=== PATIENT | female | born 1965 | race Caucasian/White ===

== ENCOUNTER 2018-04-27 10:21 | Outpatient (CLI) | payer OTHER, SELFPAY ==
[2018-04-27 10:45] LABS: Abs Immature Grans 0.01 k/cumm (0.0-0.09); Absolute Basophil Count 0.01 k/cumm (0.0-0.2); Absolute Eosinophil Count 0.07 k/cumm (0.0-0.7); Absolute Lymphocyte Count 1.43 k/cumm (1.2-3.4); Absolute Monocyte Count 0.38 k/cumm (0.11-0.7); Absolute Neutrophil Count 1.96 k/cumm (1.2-6.7); Basophils % 0.3; Eosinophils % 1.8; HCT 38.4 % (36.0-46.0); HGB 13.1 g/dL (12.0-15.5); Immature Grans % 0.3; Mean Corp. HGB Concentration 34.1 g/dL (32.0-36.0); Mean Corpuscular Hemoglobin 33.2 pg (27.0-33.0); Mean Corpuscular Volume 97.2 fL (80-95); Mean Platelet Volume 10.3 fL (8.0-11.0); Monocytes % 9.8; Neutrophils % 50.8; Platelet Count 164 x1000/uL (130-400); RBC 3.95 m/cumm (4.00-5.20); White Blood Cell Count 3.86 k/cumm (4.4-10.8)
[2018-04-27 11:57] LABS: ALT 18 U/L (12-78); AST 32 U/L (15-37); Albumin 3.7 g/dL (3.4-5.0); Alkaline Phosphatase 68 U/L (46-116); Anion Gap 8.1 mmol/L (3-11); BUN 12 mg/dL (7-18); Bilirubin, Total 1.1 mg/dL (0.2-1.0); CO2 25.9 mmol/L (21.0-32.0); CREATININE 0.95 mg/dL (0.55-1.02); Calcium 8.6 mg/dL (8.5-10.1); Chloride 105 mmol/L (98-107); Glucose 104 mg/dL (70-100); LDH 165 U/L (81-234); Potassium 4.1 mmol/L (3.5-5.1); Sodium 139 mmol/L (136-145); Total Protein 7.4 g/dL (6.4-8.2)
[2018-04-27 12:06] LABS: FREE T4 1.04 ng/dL (0.76-1.46); TSH 2.85 uIU/mL (0.358-3.74)
[2018-04-30 11:01] LABS: Thyroglobulin Antibody 57 U/mL (<61); Thyroperoxidase Antibody >1300 U/mL (<61)
[2018-04-30 11:47] LABS: C4 Complement 22 mg/dL (13-39)
[2018-04-30 13:08] LABS: C3 Complement 122 mg/dL (81-157)
[2018-04-30 13:22] LABS: Albumin 57.7 % (55.8-66.1); Total Protein 7.2 g/dl (6.3-8.2)
== END 2018-04-27 10:22 ==
PROVIDERS: PCP Nurse Practitioner; Visit Provider Internal Medicine
DX: M35.01 Sjogren syndrome with keratoconjunctivitis (principal); E06.3 Autoimmune thyroiditis
CPT/HCPCS: 36415; 80053; 83615; 84165; 84439; 84443; 84481; 85025; 86160; 86376; 86800

== ENCOUNTER 2019-03-20 12:55 | Outpatient (REF) | payer OTHER, SELFPAY ==
--- NOTE | 2019-03-20 17:00 | PAPFT_PTH ---
PATIENT: Joseph Ellington LOC: DAILY U#:[id number] AGE/SX: 53/F ROOM: RE03/20/[address]: Camille Crawford APRN : 1965 BED: DIS: 03/20/2019 SPEC #: [id number] RECD: 03/21/19 13:03 STATUS: DONAVAN SMITH #: [id number] ESTEVAN: 03/20/19 17:[address]: Camille Crawford DEPT: [facility] Cytology RECD BY: Chetna Raines Tissues: 1 - CX/ENDOCX FOR PAP SMEARS Procedures: PAP THIN PREP/UVM Screening HPV DNA PROBE Comments: [id number]
== END 2019-03-20 13:15 ==
LOC: LBN 12:55
PROVIDERS: PCP Nurse Practitioner; Visit Provider Nurse Practitioner
DX: Z12.4 Encounter for screening for malignant neoplasm of cervix (principal); Z11.51 Encounter for screening for human papillomavirus (HPV)
CPT/HCPCS: 88142; 87624

== ENCOUNTER 2019-04-11 17:30 | Outpatient (REF) | payer OTHER, SELFPAY ==
[2019-04-15 14:54] LABS: Chlamydia Result Negative; GC Result Negative; Specimen Description CERVIX
== END 2019-04-11 17:50 ==
LOC: LBN 17:30
PROVIDERS: PCP Nurse Practitioner; Visit Provider Nurse Practitioner Women's Health
DX: Z11.3 Encounter for screening for infections with a predominantly sexual mode of transmission (principal)
CPT/HCPCS: 87491; 87591

== ENCOUNTER 2019-04-12 08:13 | Outpatient (CLI) | payer OTHER, SELFPAY ==
[2019-04-12 08:41] LABS: Absolute Basophil Count 0.01 k/cumm (0.0-0.2); Absolute Eosinophil Count 0.04 k/cumm (0.0-0.7); Absolute Monocyte Count 0.33 k/cumm (0.11-0.7); Absolute Neutrophil Count 1.48 k/cumm (1.2-6.7); Basophils % 0.3; Eosinophils % 1.3; HCT 40.4 % (36.0-46.0); HGB 13.5 g/dL (12.0-15.5); Lymphocytes % 39.2; Mean Corp. HGB Concentration 33.4 g/dL (32.0-36.0); Mean Corpuscular Hemoglobin 33.1 pg (27.0-33.0); Mean Platelet Volume 9.9 fL (8.0-11.0); Monocytes % 10.8; Neutrophils % 48.4; Platelet Count 210 x1000/uL (130-400); RBC 4.08 m/cumm (4.00-5.20); RBC Distribution Width 12.5 % (11.7-14.6); White Blood Cell Count 3.06 k/cumm (4.4-10.8)
[2019-04-12 09:24] LABS: ALT 21 U/L (12-78); AST 27 U/L (15-37); Albumin 3.9 g/dL (3.4-5.0); Alkaline Phosphatase 58 U/L (46-116); Anion Gap 11.2 mmol/L (3-11); BUN 13 mg/dL (7-18); Bilirubin, Total 1.1 mg/dL (0.2-1.0); CO2 25.8 mmol/L (21.0-32.0); CREATININE 1.02 mg/dL (0.55-1.02); Calcium 9.1 mg/dL (8.5-10.1); Calculated LDL 103 mg/dL; Chloride 104 mmol/L (98-107); Cholesterol 182 mg/dL (50-200); Estimated GFR 56.91 (mL/min/1.73m2); Glucose 83 mg/dL (70-100); HDL Cholesterol 63 mg/dL (40-60); Potassium 4.1 mmol/L (3.5-5.1); Sodium 141 mmol/L (136-145); Total Protein 7.5 g/dL (6.4-8.2); Triglyceride 83 mg/dL (30-150)
[2019-04-12 13:58] LABS: FREE T4 1.24 ng/dL (0.76-1.46)
[2019-04-15 10:14] LABS: C3 Complement 114 mg/dL (81-157)
[2019-04-15 10:16] LABS: C4 Complement 21 mg/dL (13-39)
[2019-04-15 12:22] LABS: Albumin 59.1 % (55.8-66.1); Total Protein 7.2 g/dl (6.3-8.2)
== END 2019-04-12 08:33 ==
PROVIDERS: Naturopath; PCP Nurse Practitioner; Visit Provider Internal Medicine
DX: Z00.00 Encounter for general adult medical examination without abnormal findings (principal); Z13.220 Encounter for screening for lipoid disorders; E03.9 Hypothyroidism, unspecified; M35.01 Sjogren syndrome with keratoconjunctivitis
CPT/HCPCS: 36415; 80053; 80061; 83721; 84165; 84439; 84443; 85025; 86160

== ENCOUNTER 2019-06-13 09:29 | Outpatient (REF) | payer OTHER, SELFPAY ==
--- NOTE | 2019-06-13 08:55 | CER_PTH ---
PATIENT: Joseph Ellington LOC: DAILY U#:[id number] AGE/SX: 53/F ROOM: RE06/13/[address]: Negrita Molina MD : 1965 BED: DIS: 06/13/2019 SPEC #: [id number] RECD: 06/13/19 12:46 STATUS: DONAVAN REUna #: [id number] ESTEVAN: 06/13/19 08:[address]: Negrita Molina DEPT: Surgical Specimen RECD BY: Chetna Raines ENTERED: 06/13/19 12:47 SP TYPE: CER OT DR: Camille Crawford APRN Tissues: 1 - CERVICAL BIOPSY 2 - CERVICAL BIOPSY 3 - ENDOCERVICAL BX/CURRETTE Procedures: GROSS AND MICRO LEVEL 4 Comments: [id number]
== END 2019-06-13 09:49 ==
LOC: LBN 09:29
PROVIDERS: PCP Nurse Practitioner; Visit Provider Obstetrics & Gynecology
DX: N88.8 Other specified noninflammatory disorders of cervix uteri (principal); R87.619 Unspecified abnormal cytological findings in specimens from cervix uteri; R87.810 Cervical high risk human papillomavirus (HPV) DNA test positive
CPT/HCPCS: 88305

== ENCOUNTER 2019-10-06 07:55 | Outpatient (REF) | payer OTHER, SELFPAY ==
[2019-10-06 08:17] LABS: Absolute Basophil Count 0.02 k/cumm (0.0-0.2); Absolute Eosinophil Count 0.06 k/cumm (0.0-0.7); Absolute Lymphocyte Count 1.22 k/cumm (1.2-3.4); Absolute Monocyte Count 0.32 k/cumm (0.11-0.7); Absolute Neutrophil Count 2.38 k/cumm (1.2-6.7); Basophils % 0.5; Eosinophils % 1.5; HCT 38.6 % (36.0-46.0); HGB 12.9 g/dL (12.0-15.5); Lymphocytes % 30.5; Mean Corp. HGB Concentration 33.4 g/dL (32.0-36.0); Mean Corpuscular Hemoglobin 33.2 pg (27.0-33.0); Mean Corpuscular Volume 99.2 fL (80-95); Mean Platelet Volume 10.2 fL (8.0-11.0); Neutrophils % 59.5; Platelet Count 171 x1000/uL (130-400); RBC 3.89 m/cumm (4.00-5.20); RBC Distribution Width 11.8 % (11.7-14.6)
[2019-10-06 08:39] LABS: ALT 15 U/L (14-59); AST 28 U/L (15-37); Albumin 3.6 g/dL (3.4-5.0); Alkaline Phosphatase 50 U/L (46-116); Anion Gap 6.8 mmol/L (3-11); BUN 15 mg/dL (7-18); Bilirubin, Total 1.2 mg/dL (0.2-1.0); CO2 29.2 mmol/L (21.0-32.0); Calcium 8.9 mg/dL (8.5-10.1); Chloride 105 mmol/L (98-107); FREE T4 0.85 ng/dL (0.76-1.46); Glucose 80 mg/dL (74-106); Potassium 3.9 mmol/L (3.5-5.1); Sodium 141 mmol/L (136-145); Total Protein 6.6 g/dL (6.4-8.2)
[2019-10-06 11:33] LABS: Hemoglobin A1C 5.6 % (3.8-5.6)
[2019-10-10 11:00] LABS: Insulin <3.0 uIU/mL (<29.0)
== END 2019-10-06 08:15 ==
LOC: LBN 07:55
PROVIDERS: PCP Nurse Practitioner; Visit Provider Naturopath
DX: Z00.00 Encounter for general adult medical examination without abnormal findings (principal); M25.00 Hemarthrosis, unspecified joint; G43.809 Other migraine, not intractable, without status migrainosus; E06.3 Autoimmune thyroiditis; Z13.1 Encounter for screening for diabetes mellitus
CPT/HCPCS: 36415; 80053; 83036; 83525; 84439; 84443; 85025

== ENCOUNTER 2019-12-05 08:42 | Outpatient (CLI) | payer OTHER, SELFPAY ==
[2019-12-07 00:01] LABS: Arsenic (Blood) 1 ng/mL (0-12)
== END 2019-12-05 09:02 ==
PROVIDERS: PCP Nurse Practitioner; Visit Provider Naturopath
DX: E06.3 Autoimmune thyroiditis (principal); G43.809 Other migraine, not intractable, without status migrainosus; M15.1 Heberden's nodes (with arthropathy); Z77.010 Contact with and (suspected) exposure to arsenic
CPT/HCPCS: 36415; 82175

== ENCOUNTER 2019-12-09 12:39 | Outpatient (REF) | payer OTHER, SELFPAY ==
[2019-12-10 21:03] LABS: Total Arsenic <15 mcg/24 h (<18); Urine Volume 2210 mL
== END 2019-12-09 12:59 ==
LOC: LBN 12:39
PROVIDERS: PCP Nurse Practitioner; Visit Provider Naturopath
DX: Z77.010 Contact with and (suspected) exposure to arsenic (principal)
CPT/HCPCS: 82175; 81050

== ENCOUNTER 2019-12-12 13:51 | Outpatient (CLI) | payer OTHER, SELFPAY ==
[2019-12-24 14:39] LABS: Uranium None Detected mcg/L
== END 2019-12-12 14:11 ==
PROVIDERS: PCP Nurse Practitioner; Visit Provider Naturopath
DX: Z77.012 Contact with and (suspected) exposure to uranium (principal)
CPT/HCPCS: 83018

== ENCOUNTER 2019-12-30 11:39 | Outpatient (CLI) | payer OTHER, SELFPAY ==
[2019-12-30 12:50] LABS: ALT 19 U/L (14-59); AST 28 U/L (15-37); Albumin 3.9 g/dL (3.4-5.0); Alkaline Phosphatase 69 U/L (46-116); Anion Gap 7.1 mmol/L (3-11); BUN 18 mg/dL (7-18); Bilirubin, Total 1.2 mg/dL (0.2-1.0); CO2 28.9 mmol/L (21.0-32.0); CREATININE 1.04 mg/dL (0.55-1.02); Calcium 8.9 mg/dL (8.5-10.1); Chloride 105 mmol/L (98-107); Estimated GFR 55.43 (mL/min/1.73m2); Glucose 80 mg/dL (74-106); Potassium 4.4 mmol/L (3.5-5.1); Sodium 141 mmol/L (136-145); TSH 2.35 uIU/mL (0.36-3.74); Total Protein 7.4 g/dL (6.4-8.2)
[2019-12-31 23:43] LABS: 25-Hydroxy D Total 39 ng/mL; 25-Hydroxy D2 <4.0 ng/mL; 25-Hydroxy D3 39 ng/mL
== END 2019-12-30 11:59 ==
PROVIDERS: PCP Nurse Practitioner; Visit Provider Naturopath
DX: E55.9 Vitamin D deficiency, unspecified (principal); E06.9 Thyroiditis, unspecified; G43.809 Other migraine, not intractable, without status migrainosus; M15.1 Heberden's nodes (with arthropathy); R11.0 Nausea
CPT/HCPCS: 36415; 80053; 82306; 84436; 84443

== ENCOUNTER 2020-02-03 11:09 | Outpatient (CLI) | payer OTHER, SELFPAY ==
[2020-02-03 11:31] LABS: Bacteria Negative HPF (Negative); Bilirubin Negative (Negative); Blood Negative (Negative); C & S Indicated? No; Casts Negative LPF (Negative); Clarity Clear (Clear); Crystals Negative HPF (Negative); Epithelial Cells Rare HPF (Negative); Glucose Negative (Negative); Ketones Negative (Negative); Leukocyte Esterase Negative (Negative); Mucus Negative (Negative); Nitrite Negative (Negative); Specific Gravity 1.025 (1.005-1.025); Urobilinogen 0.2 EU/dL (Up TO 0.2); WBC Negative HPF (0-5); pH 6.5 (5-8)
== END 2020-02-03 11:29 ==
PROVIDERS: PCP Nurse Practitioner; Visit Provider Naturopath
DX: N23 Unspecified renal colic (principal); R35.0 Frequency of micturition
CPT/HCPCS: 81003; 81015

== ENCOUNTER 2020-02-27 10:36 | Outpatient (CLI) | payer OTHER, SELFPAY ==
--- NOTE | 2020-02-27 10:21 | DI.RAD_ITS ---
EXAM: XR KNEE RT 4V AP,LAT,MEGAN,PAT CLINICAL HISTORY: R knee pain TECHNIQUE: COMPARISON: No exams were available for comparison FINDINGS: Four views were obtained. There is moderate narrowing the medial tibiofemoral cartilaginous joint sp stephanie. The lateral tibiofemoral and patellofemoral cartilaginous joint spaces appear well maintained. No gross joint effusion by plain film criteria. Minimal marginal osteophyte formation noted at multiple sites. No other significant bony abnormality seen except for perhaps slight sclerosis medial femoral condyle. IMPRESSION: Mqon-pe-nddrvicl DJD medial tibiofemoral joint.
== END 2020-02-27 10:56 ==
PROVIDERS: PCP Nurse Practitioner; Referring Provider Nurse Practitioner; Visit Provider Physician Assistant
DX: M25.561 Pain in right knee (principal); M17.11 Unilateral primary osteoarthritis, right knee
CPT/HCPCS: 73564

== ENCOUNTER 2020-03-03 02:46 | Outpatient (CLI) | payer OTHER, SELFPAY ==
--- NOTE | 2020-03-03 14:45 | DI.MRI_ITS ---
EXAM: MR LOWER JOINT RT WO CLINICAL HISTORY: PAIN, INTERNAL DERANGEMENT OF RT KNEE, M23.91. TECHNIQUE: Multiplanar multisequence MRI was performed. COMPARISON: CR XR KNEE RT 4V AP,LAT,MEGAN,PAT from 02/27/2020 FINDINGS: BONES: There is no fracture or contusion pattern. JOINTS: There is marked thinning of the articular cartilage overlying the medial femoral condyle and the medial tibial plateau. Mild subchondral edema is seen in the femoral condyle and the tibial plat eau. No effusion is present. TENDONS: Extensor mechanism: Unremarkable. Medial retinaculum: Unremarkable. Lateral retinaculum: Unremarkable. Popliteus: Unremarkable. MUSCLES: Unremarkable. MENISCI: There is abnormal signal seen in the body and posterior horn of the medial meniscus consiste nt with a tear. The lateral meniscus is unremarkable. SOFT TISSUES: There is a popliteal cyst. It measures 3 cm transverse by 2.7 cm AP by 7.3 cm long. LIGAMENTS: Anterior Cruciate: Unremarkable. Posterior Cruciate: Unremarkable. Medial Collateral:Unremarkable. Lateral Collateral: Unremarkable. OTHER: IMPRESSION: 1. Tear of the body and posterior horn of the medial meniscus. 2. Degenerative changes seen in the medial femoral tibial joint. 3. Popliteal cyst. DATA REPOSITORY:
== END 2020-03-03 03:06 ==
PROVIDERS: PCP Nurse Practitioner; Visit Provider Student in an Organized Health Care Education/Training Program
DX: M25.561 Pain in right knee (principal); M23.91 Unspecified internal derangement of right knee; S83.241A Other tear of medial meniscus, current injury, right knee, initial encounter; M71.21 Synovial cyst of popliteal space [Baker], right knee; R60.0 Localized edema; M17.11 Unilateral primary osteoarthritis, right knee
CPT/HCPCS: 73721

== ENCOUNTER 2020-06-16 11:46 | Outpatient (REF) | payer OTHER, SELFPAY ==
--- NOTE | 2020-06-16 10:30 | PAPFT_PTH ---
PATIENT: Joseph Ellington LOC: DAILY U#:[id number] AGE/SX: 54/F ROOM: RE06/16/[address]: Zulay Sweeney NP : 1965 BED: DIS: 06/16/2020 SPEC #: [id number] RECD: 06/16/20 18:21 STATUS: DONAVAN REUna #: [id number] ESTEVAN: 06/16/20 10:[address]: Zulay Sweeney NP DEPT: [facility] Cytology RECD BY: Chetna Raines ENTERED: 06/16/20 18:21 SP TYPE: PAPFT OT DR: Camille Crawford APRN Tissues: 1 - CX/ENDOCX FOR PAP SMEARS Procedures: PAP THIN PREP/UVM Screening HPV DNA PROBE Comments: [id number]
== END 2020-06-16 12:06 ==
LOC: LBN 11:46
PROVIDERS: PCP Nurse Practitioner; Visit Provider Nurse Practitioner Women's Health
DX: R87.810 Cervical high risk human papillomavirus (HPV) DNA test positive (principal); Z12.4 Encounter for screening for malignant neoplasm of cervix
CPT/HCPCS: 88142; 87624

== ENCOUNTER 2020-08-27 11:50 | Outpatient (CLI) | payer OTHER, SELFPAY ==
[2020-08-27 12:50] LABS: Abs Immature Grans 0.01 10^3/uL (0.0-0.06); Absolute Basophil Count 0.02 10^3/uL (0.0-0.2); Absolute Eosinophil Count 0.03 10^3/uL (0.0-0.7); Absolute Lymphocyte Count 1.29 10^3/uL (1.2-3.4); Absolute Monocyte Count 0.29 10^3/uL (0.1-0.8); Absolute Neutrophil Count 1.44 10^3/uL (1.2-6.7); Basophils % 0.6; HCT 38.2 % (36.0-46.0); HGB 12.9 g/dL (11.2-15.7); Immature Grans % 0.3; Lymphocytes % 41.9; MCH 32.7 pg (27.0-33.0); MCHC 33.8 % (32.0-36.0); MPV 10.1 fL (8.0-11.0); Monocytes % 9.4; Neutrophils % 46.8; Nucleated RBC 0 %; Platelet Count 192 10^3/uL (130-400); RBC 3.94 10^6/uL (3.93-5.22); RDW 11.7 % (11.7-14.6); RDW-SD 41.8 fL; WBC 3.08 10^3/uL (4.4-10.8)
[2020-08-27 13:38] LABS: ALT 21 U/L (14-59); AST 33 U/L (15-37); Albumin 4.1 g/dL (3.4-5.0); Alkaline Phosphatase 66 U/L (46-116); Anion Gap 6.2 mmol/L (3-11); BUN 14 mg/dL (7-18); Bilirubin, Total 1.4 mg/dL (0.2-1.0); CO2 27.8 mmol/L (21.0-32.0); CREATININE 0.98 mg/dL (0.55-1.02); Chloride 105 mmol/L (98-107); Estimated GFR 59.14 (mL/min/1.73m2); FREE T4 1.05 ng/dL (0.76-1.46); Glucose 88 mg/dL (74-106); Potassium 3.9 mmol/L (3.5-5.1); Sodium 139 mmol/L (136-145); TSH 4.69 uIU/mL (0.36-3.74); Total Protein 7.7 g/dL (6.4-8.2)
[2020-08-27 22:19] LABS: Thyroperoxidase Antibody >1300 U/mL (<=60)
[2020-08-28 21:50] LABS: 25-Hydroxy D Total 46 ng/mL; 25-Hydroxy D2 <4.0 ng/mL; 25-Hydroxy D3 46 ng/mL
[2020-09-01 12:54] LABS: RNP Ab, IgG 3.1 Units (<20.0); SS-A Antibody 107.9 Units (<20.0); SS-B (La) Ab, IgG 26.2 Units (<20.0); Sm (Smith) Ab, IgG 2.8 Units (<20.0)
== END 2020-08-27 12:10 ==
PROVIDERS: PCP Nurse Practitioner; Visit Provider Naturopath
DX: E06.3 Autoimmune thyroiditis (principal); K63.9 Disease of intestine, unspecified; R06.09 Other forms of dyspnea; M35.00 Sjogren syndrome, unspecified; M54.5 Low back pain; M25.551 Pain in right hip; N94.3 Premenstrual tension syndrome; T57.0X Toxic effect of arsenic and its compounds; G43.809 Other migraine, not intractable, without status migrainosus; M15.1 Heberden's nodes (with arthropathy); E55.9 Vitamin D deficiency, unspecified; R94.4 Abnormal results of kidney function studies; R10.9 Unspecified abdominal pain
CPT/HCPCS: 36415; 80053; 82306; 84439; 84443; 85025; 86235; 86376

== ENCOUNTER 2020-09-06 07:55 | Outpatient (REF) | payer OTHER, SELFPAY ==
[2020-09-06 08:59] LABS: Total Volume 2325 ml
[2020-09-06 09:13] LABS: CREATININE 1.04 mg/dL (0.55-1.02)
[2020-09-06 09:15] LABS: Creatinine,Urine 65.84 mg/dL
== END 2020-09-06 08:15 ==
LOC: LBN 07:55
PROVIDERS: PCP Nurse Practitioner; Visit Provider Naturopath
DX: E06.3 Autoimmune thyroiditis (principal); K63.9 Disease of intestine, unspecified; M35.00 Sjogren syndrome, unspecified; M54.5 Low back pain; M25.551 Pain in right hip; J30.9 Allergic rhinitis, unspecified; T57.0X Toxic effect of arsenic and its compounds; N94.3 Premenstrual tension syndrome; G43.809 Other migraine, not intractable, without status migrainosus; M15.1 Heberden's nodes (with arthropathy); E55.9 Vitamin D deficiency, unspecified; R94.4 Abnormal results of kidney function studies; R10.9 Unspecified abdominal pain
CPT/HCPCS: 81050; 82575

== ENCOUNTER 2020-10-23 01:43 | Outpatient (REF) | payer OTHER, SELFPAY ==
[2020-10-23 20:18] LABS: COVID-19 RT-PCR UVMMC Result Negative (Negative)
== END 2020-10-23 02:03 ==
LOC: LBO 01:43
PROVIDERS: PCP Nurse Practitioner; Visit Provider Nurse Practitioner Family
DX: Z11.52 Encounter for screening for COVID-19 (principal)
CPT/HCPCS: U0003

== ENCOUNTER 2020-11-27 04:16 | Outpatient (CLI) | payer OTHER, SELFPAY ==
--- NOTE | 2020-11-27 14:58 | DI.RAD_ITS ---
EXAM: XR CHEST 2V PA LATERAL CLINICAL HISTORY: Pt noted enlarged node neck, resolved,R09.89,M35.00,LYMPH NOTED SYMPTOM, TECHNIQUE: 2D digital imaging was performed. COMPARISON: No exams were available for comparison FINDINGS: MEDIASTINUM: Normal. HEART: Normal. PULMONARY VASCULATURE: Normal. LUNGS: Clear. PLEURAL SPACE: No pleural effusion or pneumothorax. BONE:Within normal limits for the patient's age. OTHER FINDINGS:Normal. IMPRESSION: No acute pulmonary findings. DATA REPOSITORY: RADIATION DOSE DELIVERED:
== END 2020-11-27 04:36 ==
PROVIDERS: PCP Nurse Practitioner; Visit Provider Nurse Practitioner
DX: R59.0 Localized enlarged lymph nodes (principal)
CPT/HCPCS: 71046

== ENCOUNTER 2021-02-05 08:38 | Outpatient (CLI) | payer OTHER, SELFPAY ==
[2021-02-05 10:32] LABS: Bilirubin Negative (Negative); Blood Negative (Negative); Clarity Clear (Clear); Glucose Negative (Negative); Ketones Negative (Negative); Leukocyte Esterase Negative (Negative); Nitrite Negative (Negative); Urobilinogen 0.2 EU/dL (Up TO 0.2)
[2021-02-05 11:20] LABS: C-Reactive Protein < 0.05 mg/dL (0.0-0.3)
[2021-02-05 11:54] LABS: Vitamin B12 286 pg/mL (193-986)
[2021-02-08 10:37] LABS: Hepatitis C Ab w Rflx HCV PCR Negative (Negative)
[2021-02-08 12:27] LABS: Albumin 61.5 % (55.8-66.1); Total Protein 7.7 g/dL (6.3-8.2)
== END 2021-02-05 08:39 | disposition home or self-care (01) ==
PROVIDERS: PCP Nurse Practitioner; Visit Provider Internal Medicine Rheumatology
DX: M35.01 Sjogren syndrome with keratoconjunctivitis (principal); G62.9 Polyneuropathy, unspecified; Z11.59 Encounter for screening for other viral diseases
CPT/HCPCS: 36415; 86803; 81003; 82607; 84165; 86140

== ENCOUNTER 2021-03-08 02:21 | Outpatient (CLI) | payer OTHER, SELFPAY ==
[2021-03-08 11:23] LABS: Source Nasal/Nares
[2021-03-08 21:00] LABS: COVID-19 PCR Negative (Negative)
== END 2021-03-08 02:22 | disposition home or self-care (01) ==
LOC: LBO 02:22
PROVIDERS: PCP Nurse Practitioner; Visit Provider Student in an Organized Health Care Education/Training Program
DX: Z20.822 Contact with and (suspected) exposure to COVID-19 (principal); Z01.818 Encounter for other preprocedural examination
CPT/HCPCS: 87635

== ENCOUNTER 2021-03-09 10:42 | Day surgery (SDC) | payer OTHER, SELFPAY ==
--- NOTE | 2021-03-05 10:59 | PDOC.ANES ---
Date of service: 03/05/21 Time of Service: 10:59 Anesthesia Note Report Anesthesia Note: Yesterday ANTHONY Sanders called and requested our department to reach out to the patient referencing modes of anesthesia for her upcoming knee scope with Dr. Adan. We have called the patient on five separate occaisions between myself and Vangie Lane. The patient does not have a voicemail on the provided cell phone number in her chart and I believe Vangie Lane reached out via the patients work extension as well. We are more than happy to discuss anesthetic modes and plan with the patient when she is available.
[2021-03-09] VITALS (7 sets, daily range): BP systolic 89–128; BP diastolic 53–80; PULSE 45–62; RESP 12–17; TEMP 36.2–36.6; O2SAT 97–100; BMI 21.1
--- NOTE | 2021-03-09 10:17 | W.PM.DSUDISC ---
Discharge Plan Disposition Patient Disposition: HOME Condition: Stable Discharge Details Reason For Visit: MEDIAL MENISCUS TEAR (R) Attending Provider: Manpreet Adan Primary Care Provider: Camille Crawford Home Meds and New Rx's Prescriptions: New hydrocodone-acetaminophen 5-325 mg tablet 1 tab PO Q6H PRNQty: 5 RF: 0 acetaminophen [Tylenol Extra Strength] 500 mg tablet 500 mg PO Q6H PRNQty: 90 RF: 0 Continued Mirena 20 mcg/24 hours (5 yrs) 52 mg intrauterine device 1 device IY ONCE RF: 0 AlgeaCal RF: 0 Vitamin B-6 50 MG capsule 50 mg PO qother day RF: 0 levothyroxine 88 mcg tablet 85 mcg PO HS RF: 0 Discharge Instructions Stand Alone Forms: [facility] Knee Arthroscopy Referrals: Manpreet Adan MD [ [facility] STAFF PHYSICIAN] - Equipment/Supplies: Partial Weight Bearing Crutches Activity:: Activity as Tolerated Remove Dressings/Wound Care:: 72 hours Shower/Bathe:: 72 hours Diet:: As Tolerated Discharge Orders Discharge Orders: Discharge Order (Routine); Ordered 03/09/21 Ordered By: Kari Hubbard DS: Diagnosis Discharge Diagnosis (1) Complex tear of medial meniscus of right knee: Status: Acute (2) Internal derangement of right knee: Status: Acute
--- NOTE | 2021-03-09 10:27 | W.ANESPRE ---
General Info Date of Service Date Performed: 03/09/21 Height: 5 ft 6.5 in Weight: 60.328 kg Body Mass Index (BMI): 21.1 Surgical Procedure: Operation Date: 03/09/21 12:40 Proposed Procedures Side Surgeon p Knee Arthroscopy Right Manpreet Adan MD Meds Allergies and Home Medications Allergies Allergy/AdvReac Type Severity Reaction Status Date / Time prednisone Allergy difficulty Verified 03/08/21 12:06 breathing egg AdvReac inflammator Verified 03/08/21 12:06 y NSAIDS (Non-Steroidal AdvReac limb Verified 03/08/21 12:06 Anti-Inflamma numbness, gi upset 3M neutral Supervisor Electronic Testing Allergy Unknown Uncoded 03/08/21 12:06 oysters Allergy vomiting Uncoded 03/08/21 12:06 Home Medication Medication Instructions Recorded Algeacal 05/12/15 Vitamin B-6 50 mg PO qother day 04/18/17 levonorgestrel 20 mcg/24 hours (6 1 device IY ONCE 06/13/19 yrs) 52 mg intrauterine device levothyroxine 88 mcg tablet 85 mcg PO HS tab-cap 11/24/20 acetaminophen [Tylenol Extra 500 mg PO Q6H PRN #90 tab 03/09/21 Strength] hydrocodone-acetaminophen 1 tab PO Q6H PRN #5 tab 03/09/21 Current Visit Medications: Current Medications Generic Name Dose Route Start Last Admin Trade Name Freq PRN Reason Stop Dose Admin Acetaminophen 650 mg 03/09/21 10:16 Acetaminophen 325 Mg Tab PO Q4H PRN PRN Hydrocodone Bitart/Acetaminophen 0 tab 03/09/21 10:16 Hydrocodone 5/Acetaminophen 325 Tab PO Q3H PRN PRN Pain Ringer's Solution 1,000 mls @ 80 mls/hr 03/09/21 06:00 IV 04/07/21 23:59 INFUSION MYRON Cefazolin Sodium/Dextrose 2 gm in 50 mls @ 100 mls/hr 03/09/21 06:00 Ancef Duplex IVPB 03/09/21 23:59 PREOP MYRON Ondansetron HCl 4 mg/ Sodium 52 mls @ 200 mls/hr 03/09/21 10:16 Chloride IVPB Q6H PRN PRN IV Miscellaneous Supplies 1 each 03/09/21 06:00 Iv Access IV 04/07/21 23:59 DIRECTED MYRON Sodium Chloride 0 ml 03/09/21 06:00 Normal Saline Flush 10 Ml Syr IV 04/07/21 23:59 PRN PRN Sodium Chloride 0 ml 03/09/21 06:00 Normal Saline 10 Ml Vial IJ 04/07/21 23:59 DIRECTED PRN Sterile Water 0 ml 03/09/21 06:00 Water,Injection,Sterile 10 Ml Vial IJ 04/07/21 23:59 DIRECTED PRN PFSH Active Problems Active Problems: Problem Status Onset Code Sjogren's disease 04/24/15 M35.00 [place] syndrome 12/01/14 E80.4 Asthma without status asthmaticus 01/28/14 J45.909 Acquired hypothyroidism 01/29/14 E03.9 Vaginal irritation N89.8 Internal derangement of right knee M23.91 Complex tear of medial meniscus of right knee S83.231A Lymph node symptom R09.89 Encounter for screening laboratory testing for COVID-19 virus Z20.822 Environmental allergies Z91.09 Sensitive to smells R43.1 Sensitivity to occupational chemical Z91.048 Fatigue R53.83 Papanicolaou smear of cervix with positive high risk human papilloma virus (HPV) test R87.810 IUD surveillance Z30.431 Medical History Medical History Asthma DVT of leg (deep venous thrombosis) 1998 Right thought to be due to OCPs Fatigue History of anesthesia reaction states she has anesthesia reactions....states when she had anesthesia and she wakes up and has convulsions, and her BP drops this was at [facility] in 2005 Hypothyroidism IUD surveillance Papanicolaou smear of cervix with positive high risk human papilloma virus (HPV) test Sensitive to smells Sensitivity to occupational chemical Sjogren's disease Surgical History Surgical History Oophrectomy, Right Tobacco Smoking/Tobacco Use Status: Never Alcohol Alcohol Intake: former Substance Use Substance use: Never Substance use type: does not use Vital Signs and Lab Results Lab Results Blood Type / Crossmatch: No Data to Display Complete Blood Count: No Data to Display Complete Metabolic Panel: No Data to Display Liver Function Panel: No Data to Display Coagulation Panel: No Data to Display Cardiac Panel: No Data to Display Arterial Blood Gas: No Data to Display Venous Blood Gas: No Data to Display Pancreas Panel: No Data to Display Thyroid Panel: No Data to Display Infectious Disease: Coronavirus (COVID-19)(PCR) Negative (Negative) 03/08/21 11:05 03/08/21 Coronavirus 2019 Source Nasal/nares 03/08/21 11:05 03/08/21 Blood Cultures: No Data to Display Toxicology Panel: No Data to Display Panel: No Data to Display Imaging and Studies Imaging and Studies Stress Test Summary: 12/02/2016 Impressions: Normal study after maximal exercise. Summary: 1. Stress ECG conclusions: Brito treadmill score: 14. This score predicts a low risk of cardiac events. Echocardiogram Summary: 12/15/2016 Summary: 1. Left ventricle: The cavity size was normal. Systolic function was normal. The estimated ejection fraction was 60-65%. 2. Aortic valve: There was no stenosis. There was no regurgitation. 3. Aortic root: The aortic root was normal in size. Questionable mobile mass with homogeneous echotexture located in the sinus of valsava, associated with the non coronary cusp. Measures apx 1 cm diameter. Differential includes tumor, thrombus or artifact. 4. Mitral valve: There was mild regurgitation. 5. Right ventricle: The cavity size was normal. Wall thickness was normal. Systolic function was normal. 6. Right atrium: The atrium was mildly dilated. 7. Atrial septum: No defect or patent foramen ovale was identified. 8. Pulmonary arteries: Pulmonary systolic pressure was in the range of 20mm Hg to 30mm Hg. 9. Inferior vena cava: The vessel was patent and normal in size. The respirophasic diameter changes were in the normal range (greater than or equal to 50%), consistent with normal central venous pressure. Anesthesia Assessment and Plan Anesthesia History Personal History: No History of Anesthesia Complications Family History: No Family History of Anesthesia Complications Exercise Tolerance Exercise Tolerance: Metabolic Equivalents>4 Pertinent Negatives Pertinent Negatives: No Symptoms of GERD, No Major Cardiovascular Symptoms or Complaints, No Major Pulmonary Symptoms or Complaints and No History of CVA/TIA Cardiac & Pulmonary Exam Cardiac Exam: Normal S1/S2 Heart Sounds Pulmonary Exam: Clear Bilateral Breath Sounds Airway Exam Known Difficult Airway: No Mallampati Class: 2 Mouth Opening: Normal (> 3cm) Thyromental Distance: Greater than 3 cm Neck Range of Motion: Full ROM Neck Circumference: Normal Teeth Condition: Normal Dentition ASA Classification ASA Score: ASA 2 Emergency Case?: No NPO Status NPO Status: NPO Clears >2 hours, Solids >8 hours Status Status: Negative HCG Anesthesia Plan Resuscitation Status: Full Code Anesthesia Technique: Spinal Anesthesia Airway Planned: Natural Airway Monitors Used: Standard Monitors
[2021-03-09] MEDS: Lactated Ringers 1,000 ML 80 ML IV (11:29)
[2021-03-09] MEDS: ceFAZolin 2 GM/50 ML BAG IVPB (12:00)
[2021-03-09] MEDS: Bupivacaine 0.5% Pres-Free 30 ML VIAL (12:25)
--- NOTE | 2021-03-09 15:01 | W.ANESPOSTOP ---
Postoperative Evaluation Date, Time and Location Date Performed: 03/09/21 Time Performed: 15:02 Patient Location: Day Surgery Unit Vital Signs Most Recent Imported Vital Signs: Most Recent Vital Signs Temp Pulse Resp BP Pulse Ox 36.2 C L 45 L 16 114/71 98 03/09/21 13:24 03/09/21 13:24 03/09/21 13:24 03/09/21 13:24 03/09/21 13:24 Pain Score Most Recent Pain Score: Most Recent Pain Score Pain Level 0 03/09/21 13:24 Assessment Mental Status: Awake (Alert & Oriented to Patient Baseline) Airway and Respiratory Function: Patent airway with normal (patient baseline) respiratory exam Cardiovascular Function: Hemodynamically Stable Hydration Status: Adequately Hydrated Nausea & Vomiting: No Nausea or Vomiting Pain: Pt. Denies Any Pain Peripheral Nerve Block: Patient did not receive a nerve block
--- NOTE | 2021-03-09 17:13 | W.PM.OP ---
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 This was confirmed based on MRI and exam findings. Nonoperative measures were exhausted but disability and pain persisted. I discussed knee arthroscopy with meniscal intervention with the patient. I reviewed the risks of the procedure to include, but not limited to, bleeding, infection, pain, stiffness, damage to nerves or vessels, recurrence, blood clot. Despite these risks, the patient elected to proceed. Findings: A diagnostic arthroscopy was performed with the following findings: Suprapatellar Pouch: No significant inflammation, No loose bodies Medial Compartment: Complex medial meniscal tear, Intact meniscal root, Focal area of Grade IV chondromalacia (5x12mm central medial femur, 6x8mm far medial medial tibia), No loose bodies Notch: ACL and PCL were intact Lateral Compartment: No meniscal tear, Intact meniscal root, No significant chondromalacia or signs of arthritis, No loose bodies Patellofemoral Compartment: No significant chondromalacia, No apparent patellar maltracking Procedure Description: Joseph was greeted in the preoperative holding area where the correct side was identified and marked. The consent was reviewed with the patient and signed. The history and physical was updated. All questions were answered. She was taken back to the operating room. A spinal anesthetic was administered. The patient was placed into the supine position on the operating room table. A nonsterile tourniquet was placed high onto the leg but not used. All bony prominences were well padded. Prophylactic antibiotics in the form of Cefazolin were administered. The right leg was then prepped with Chloraprep and draped in a standard fashion with stockinette and extremity drape. A timeout to confirm correct identity, side and site, procedure, allergies, anesthesia, and medical concerns was performed. The leg was placed into a pneumatic leg marshall, [id number]. A standard lateral portal was made at the lateral border of the patella tendon in line with the inferior pole of the patella, soft spot. The skin and deep tissue was incised sharply and the blunt trochar was inserted atraumatically. A diagnostic arthroscopy was performed and the findings are listed above. The suprapatellar pouch had no significant inflammatory change. The patellofemoral articulation showed no articular damage as well as good tracking. The lateral gutter had no loose bodies and the medial gutter had no loose bodies but there was a small osteophyte. The knee was brought into some valgus stress in extension to open the medial compartment. A medial portal was made, localized by a spinal needle. The portal was created with an #11 blade through skin and capsule under direct visualization avoiding any meniscal injury. A probe was then inserted into the medial compartment. The medial compartment was fully inspected. The chondral surface of the tibia showed a focal area of Grade IV chondromalacia over the medial rim of the posteromedial aspect of the medial tibial plateau, approximately 6x8mm. This was an uncontained lesion. The surface of the femur showed a strip of Grade IV chondromalacia, approximately 5x12mm. The surrounding cartilage may have been slightly thinned. The medial meniscus had a complex medial meniscal tear of the posterior horn. The tissue of the meniscus in this region was also quite poor and degenerative. After evaluation, the meniscus was debrided down to a stable base using a series of biters and arthroscopic radha. It was probed afterwards to confirm that the tear had been removed and the meniscus was stable. The notch was then inspected which showed an intact ACL and an intact PCL. The leg was then brought into a figure of 4 position. The lateral compartment was fully inspected with the arthroscope and a probe. The chondral surface of the lateral femur showed no significant chondromalacia. The chondral surface of the lateral tibia showed no significant chondromalacia. The lateral meniscus had no meniscal tear. The arthroscope was brought back into the suprapatellar pouch and the leg was in full extension. The knee was thoroughly irrigated with the arthroscopic fluid on high flow and pressure. Inflow was stopped and excess fluid was removed. The wounds were closed with 4-0 Nylon. They were dressed with Xeroform, 4x4 gauze, ABD pad, Kerlix and an UZMA wrap. A cryo-cuff was applied. The patient tolerated the procedure well and was returned to the Same Day Surgery area in a stable condition suffering no known complication.
== END 2021-03-09 15:21 | disposition home or self-care (01) ==
LOC: SUR 10:42
PROVIDERS: PCP Nurse Practitioner; Visit Provider Student in an Organized Health Care Education/Training Program
PROC: (CPT 29870; principal; 2021-03-09 12:30)
DX: S83.231A Complex tear of medial meniscus, current injury, right knee, initial encounter (principal); X58.XXXA Exposure to other specified factors, initial encounter; M94.261 Chondromalacia, right knee
CPT/HCPCS: 29881; J0690; J1100; J2001; J2405; J2704

== ENCOUNTER 2021-03-26 09:21 | Outpatient (CLI) | payer OTHER, SELFPAY ==
[2021-03-26 12:00] LABS: TSH 5.61 uIU/mL (0.36-3.74)
[2021-03-26 17:04] LABS: T3,Free 2.9 pg/mL (2.8-5.3); T4, Free 1.2 ng/dL (0.8-2.2)
[2021-03-26 17:26] LABS: Thyroglobulin Antibody 94 U/mL (<=60); Thyroperoxidase Antibody >1300 U/mL (<=60)
== END 2021-03-26 09:22 | disposition home or self-care (01) ==
LOC: LBO 09:23
PROVIDERS: PCP Nurse Practitioner; Visit Provider Naturopath
DX: E06.3 Autoimmune thyroiditis (principal); G43.809 Other migraine, not intractable, without status migrainosus; J30.9 Allergic rhinitis, unspecified; M15.1 Heberden's nodes (with arthropathy)
CPT/HCPCS: 36415; 86376; 84443; 84481

== ENCOUNTER 2021-05-13 06:44 | Outpatient (CLI) | payer OTHER, SELFPAY ==
[2021-05-13 12:22] LABS: Source Nasal/Nares
[2021-05-13 16:02] LABS: COVID-19 PCR Negative (Negative)
== END 2021-05-13 06:45 | disposition home or self-care (01) ==
PROVIDERS: Nurse Practitioner Family; PCP Nurse Practitioner; Visit Provider Family Medicine
DX: Z20.822 Contact with and (suspected) exposure to COVID-19 (principal)
CPT/HCPCS: 87635

== ENCOUNTER 2021-07-06 07:51 | Outpatient (CLI) | payer OTHER, SELFPAY ==
[2021-07-06 08:51] LABS: ALT 21 U/L (14-59); AST 32 U/L (15-37); Albumin 4.1 g/dL (3.4-5.0); Alkaline Phosphatase 80 U/L (46-116); BUN 15 mg/dL (7-18); Bilirubin, Total 1.2 mg/dL (0.2-1.0); CREATININE 1.1 mg/dL (0.55-1.02); Calcium 9.3 mg/dL (8.5-10.1); Calculated LDL 138 mg/dL (<100); Chloride 104 mmol/L (98-107); Cholesterol 225 mg/dL (<200); Estimated GFR 51.76 (mL/min/1.73m2); Glucose 96 mg/dL (74-106); HDL Cholesterol 74 mg/dL (40-60); Potassium 4.2 mmol/L (3.5-5.1); Sodium 143 mmol/L (136-145); TSH (W/Ref FT4) 10.33 uIU/mL (0.36-3.74); Total Protein 7.6 g/dL (6.4-8.2); Triglyceride 68 mg/dL (<150)
[2021-07-06 14:25] LABS: Absolute Basophil Count 0.02 10^3/uL (0.0-0.2); Absolute Eosinophil Count 0.09 10^3/uL (0.0-0.7); Absolute Lymphocyte Count 1.33 10^3/uL (1.2-3.4); Absolute Monocyte Count 0.38 10^3/uL (0.1-0.8); Absolute Neutrophil Count 1.29 10^3/uL (1.2-6.7); Basophils % 0.6; Eosinophils % 2.9; HCT 40.3 % (36.0-46.0); HGB 12.9 g/dL (11.2-15.7); Lymphocytes % 42.8; MCH 31.9 pg (27.0-33.0); MCV 99.5 fL (80-95); MPV 10.4 fL (8.0-11.0); Monocytes % 12.2; Neutrophils % 41.5; Nucleated RBC 0 %; Platelet Count 195 10^3/uL (130-400); RBC 4.05 10^6/uL (3.93-5.22); RDW 11.7 % (11.7-14.6); RDW-SD 42.5 fL; WBC 3.11 10^3/uL (4.4-10.8)
== END 2021-07-06 07:52 | disposition home or self-care (01) ==
LOC: LBO 07:53
PROVIDERS: PCP Nurse Practitioner; Visit Provider Nurse Practitioner
DX: E03.9 Hypothyroidism, unspecified (principal); R53.83 Other fatigue; M35.00 Sjogren syndrome, unspecified
CPT/HCPCS: 36415; 80053; 80061; 84439; 84443; 84481; 85025

== ENCOUNTER 2021-08-31 15:14 | Outpatient (REF) | payer OTHER, SELFPAY ==
--- NOTE | 2021-08-31 13:30 | PAPFT_PTH ---
PATIENT: Joseph Ellington LOC: [facility] U#:[id number] AGE/SX: 56/F ROOM: RE08/31/[address]: Magdalena Espinosa : 1965 BED: DIS: 08/31/2021 SPEC #: [id number] RECD: 08/31/21 17:43 STATUS: DONAVAN SMITH #: [id number] ESTEVAN: 08/31/21 13:[address]: Magdalena Espinosa DEPT: [facility] Cytology RECD BY: Chetna Raines ENTERED: 08/31/21 17:43 SP TYPE: PAPFT OTHR DR: Camille Crawford APRN Tissues: 1 - CX/ENDOCX FOR PAP SMEARS Procedures: PAP THIN PREP/UVM Screening HPV DNA PROBE Comments: [id number]
== END 2021-08-31 15:15 | disposition home or self-care (01) ==
LOC: LBN 15:14
PROVIDERS: PCP Nurse Practitioner; Visit Provider Obstetrics & Gynecology Gynecology
DX: Z12.4 Encounter for screening for malignant neoplasm of cervix (principal); Z11.51 Encounter for screening for human papillomavirus (HPV); R87.810 Cervical high risk human papillomavirus (HPV) DNA test positive
CPT/HCPCS: 88142; 87624

== ENCOUNTER 2022-08-16 15:30 | Outpatient (REF) | payer OTHER, SELFPAY ==
[2022-08-17 21:36] LABS: Influenza A RNA Result Negative (Negative); Influenza B RNA Result Negative (Negative); RSV RNA Result Negative (Negative)
[2022-08-17 21:41] LABS: COVID-19 RT-PCR UVMMC Result Negative (Negative)
== END 2022-08-16 15:31 | disposition home or self-care (01) ==
LOC: LBN 15:30
PROVIDERS: PCP Nurse Practitioner; Visit Provider Nurse Practitioner
DX: J02.9 Acute pharyngitis, unspecified (principal); R53.83 Other fatigue; Z20.822 Contact with and (suspected) exposure to COVID-19
CPT/HCPCS: 87631; U0003

== ENCOUNTER 2022-12-13 10:05 | Outpatient (REF) | payer OTHER, SELFPAY ==
--- NOTE | 2022-12-13 10:00 | PAPFT_PTH ---
PATIENT: Joseph Ellington LOC: [facility] U#:[id number] AGE/SX: 57/F ROOM: RE12/13/[address]: Magdalena Espinosa : 1965 BED: DIS: 12/13/2022 SPEC #: [id number] RECD: 12/13/22 13:10 STATUS: DONAVAN REUna #: [id number] ESTEVAN: 12/13/22 10:[address]: Magdalena Espinosa DEPT: [facility] Cytology RECD BY: Chetna Raines ENTERED: 12/13/22 13:10 SP TYPE: PAPFT OTHR DR: Camille Crawford APRN Tissues: 1 - CX/ENDOCX FOR PAP SMEARS Procedures: PAP THIN PREP/UVM Screening HPV DNA PROBE Comments: [id number]
== END 2022-12-13 10:06 | disposition home or self-care (01) ==
LOC: LBN 10:05
PROVIDERS: PCP Nurse Practitioner; Visit Provider Obstetrics & Gynecology Gynecology
DX: Z12.4 Encounter for screening for malignant neoplasm of cervix (principal); R87.610 Atypical squamous cells of undetermined significance on cytologic smear of cervix (ASC-US); Z11.51 Encounter for screening for human papillomavirus (HPV)
CPT/HCPCS: 88142; 87624